=== PATIENT | female | born 1940 | race Hispanic/Latino ===

== ENCOUNTER → 2018-01-01 | Outpatient (CLI) | payer MEDICARE ==
--- NOTE | 2018-01-01 11:20 | Diagnostic Imaging Report ---
PROCEDURE:BONE DXA DUAL ENERGY INDICATION: Postmenopausal osteoporosis screening The patient history questionnaire was completed and is available on PACS. COMPARISON:12/07/2016 and 11/25/2013 FINDINGS: Evaluation of the left hip and lumbar spine was performed utilizing DEXA Hologic bone densitometer. The study is technically adequate. The patient's fracture risk is compared to an age-matched control. The patient denies prior surgery/fracture of the spine, hips or forearm. Left femoral neck bone mineral density: 0.583 g/cm2, T-score is -2.5, Z-score is -0.4. Left total hip bone mineral density: 0.742 g/cm2, T-score is -1.6, Z-score is 0.2. There has been a 2.5% decrease in measured bone mineral density of the left total hip since the baseline examination (11/25/2013). There has been a 1.3% increase in bone mineral density since the prior examination (12/07/2016). Lumbar spine total bone mineral density: 0.952 g/cm2, T-score is -0.9, Z-score is 1.5. There has been a 7.6% increase in measured bone mineral density in the lumbar spine since the baseline examination. There has been a 4.9% increase in bone mineral density since the prior examination. IMPRESSION: Bone mineralization by WHO Classification is osteoporotic. The fracture risk remains high. Correlate clinically for the necessity and timing of the next bone mineral density study. Dictated by: Zacarias Yee M.D. on 01/01/2018 at 11:26 Electronically approved by: Zacarias eYe M.D. on 01/01/2018 at 11:26
== END ==
LOC: MAMMO 09:24
PROVIDERS: ATTEND Family Medicine
DX: Z12.31 Encounter for screening mammogram for malignant neoplasm of breast (principal); M81.0 Age-related osteoporosis without current pathological fracture
CPT/HCPCS: 77067; 77080

== ENCOUNTER → 2018-12-31 | Outpatient (CLI) | payer MEDICARE ==
[~2018-12-31] MED LIST: ALENDRONATE SOD70 MG PO; AMLODIPINE BESY10 MG PO; CLONIDINE HCL0.1 MG PO; LISINOPRIL-HCT1 EAC1 PO; METOPROLOL SUC100 MG PO; PRAVASTATIN SOD40 MG PO
--- NOTE | 2018-12-31 10:07 | Diagnostic Imaging Report ---
EXAM: BONE MINERAL DENSITY HISTORY: Bone mineralization evaluation COMPARISON: Report from January 01, 2018 DISCUSSION: Evaluation of the left hip and lumbar spine was performed utilizing DEXA Hologic bone densitometer. The study is technically adequate. Left hip femoral neck bone mineral density: 0.61 g/cm2, T-score is -2.2, Z-score is -0.1. Left hip total bone mineral density: 0.76 g/cm2, T-score is -1.5, Z-score is 0.4. Bone mineralization increased by 3%. Lumbar spine total bone mineral density: 0.98 gm/cm2, T-score is -0.6, Z-score is 1.9. Bone mineralization increased by 2.9%. 10 year fracture risk for major osteoporotic fracture 13% and hip fracture 3.6%. Impression: Bone mineralization by WHO Classification is low bone mass/osteopenia, the fracture risk is increased. Signed by: Dr. Hank Dejesus M.D. on 12/31/2018 10:04 AM
--- NOTE | 2019-01-06 09:30 | Diagnostic Imaging Report ---
#[id number] - MGSCRBIL #BILATERAL DIGITAL SCREENING MAMMOGRAM WITH CAD: 12/31/2018 CLINICAL: Routine screening. Comparison is made to exams dated: 01/01/2018 mammogram and 12/07/2016 mammogram - [facility]. Current study contains 4 films. There are scattered fibroglandular elements in both breasts. Current study was also evaluated with a Computer Aided Detection (CAD) system. Benign appearing calcifications are noted bilaterally. No significant masses, calcifications, or other findings are seen in either breast. IMPRESSION: BENIGN There is no mammographic evidence of malignancy. A 1 year screening mammogram is recommended. The patient will be notified by letter of the results. DIXON MILES M.D. ct/penrad:01/02/2019 17:35:13 [employer] Operator: Sol TURNER(Ofelia)(Suraj), [facility] letter sent: Normal Exam Mammogram BI-RADS: 2 Benign
== END ==
LOC: DX 08:46
PROVIDERS: ATTEND Family Medicine
DX: Z12.31 Encounter for screening mammogram for malignant neoplasm of breast (principal); M81.0 Age-related osteoporosis without current pathological fracture
CPT/HCPCS: 77067; 77080

== ENCOUNTER 2019-01-05 19:28 | Emergency (ER) | payer MEDICARE ==
[~2019-01-05] VITALS: Ht 152.4 cm; Wt 59.0 kg
--- OUTSIDE RECORDS SUMMARY | 2019-01-05 19:31 | XMS REPORT ---
Author [facility] Address Unknown Phone Unavailable Care Team Providers Care Chemistry Quality Control Technician Name Role Phone Arnulfo KNAPP Unavailable Unavailable Problems This patient has no known problems. Allergies, Adverse Reactions, Alerts This patient has no known allergies or adverse reactions. Medications This patient has no known medications. Results Test Description Test Time Test Comments Text Results Atomic Results Result Comments BONE DXA DUAL ENERGY 2018-12-31 10:01:00 [place] [address] Patient Name: SAULO MAKI MR #: [id number] : 1940 Age/Sex: 78/F Req #: [id number] Adm Physician: Ordered by: GERARDO KNAPP MD Report #: [id number] Location: DX Room/Bed: Procedure: [id number] DX/BONE DXA DUAL ENERGY Exam Date: Exam Time: REPORT STATUS: Signed EXAM: BONE MINERAL DENSITY HISTORY: Bone mineralization evaluation COMPARISON: Report from January 01, 2018 DISCUSSION: Evaluation of the left hip and lumbar spine was performed utilizing DEXA Hologic bone densitometer. The study is technically adequate. Left hip femoral neck bone mineral density: 0.61 g/cm2, T-score is -2.2, Z-score is -0.1. Left hip total bone mineral density: 0.76 g/cm2, T-score is -1.5, Z-score is 0.4. Bone mineralization increased by 3%. Lumbar spine total bone mineral density: 0.98 gm/cm2, T-score is -0.6, Z-score is 1.9. Bone mineralization increased by 2.9%. 10 year fracture risk for major osteoporotic fracture 13% and hip fracture 3.6%. Impression: Bone mineralization by WHO Classification is low bone mass/osteopenia, the fracture risk is increased. Signed by: Dr. Rosa Carbajal M.D. on 12/31/2018 10:04 AM Dictated By: ROSA CARBAJAL MD 1004 Transcribed By: KAILEY on 12/31/18 1004 COPY TO: GERARDO KNAPP MD BONE DXA DUAL ENERGY 2018-01-01 11:26:00 [place] [address] Patient Name: SAULO MAKI MR #: [id number] : 1940 Age/Sex: 77/F Req #: [id number] Adm Physician: Ordered by: GERARDO KNAPP MD Report #: [id number] Location: [facility] Room/Bed: Procedure: [id number] DX/BONE DXA DUAL ENERGY Exam Date: Exam Time: REPORT STATUS: Signed PROCEDURE: BONE DXA DUAL ENERGY INDICATION: Postmenopausal osteoporosis screening The patient history questionnaire was completed and is available on PACS. COMPARISON: 12/07/2016 and 11/25/2013 FINDINGS: Evaluation of the left hip and lumbar spine was performed utilizing DEXA Hologic bone densitometer. The study is technically adequate. The patient's fracture risk is compared to an age-matched control. The patient denies prior surgery/fracture of the spine, hips or forearm. Left femoral neck bone mineral density: 0.583 g/cm2, T-score is -2.5, Z-score is -0.4. Left total hip bone mineral density: 0.742 g/cm2, T-score is -1.6, Z-score is 0.2. There has been a 2.5% decrease in measured bone mineral density of the left total hip since the baseline examination (11/25/2013). There has been a 1.3% increase in bone mineral density since the prior examination (12/07/2016). Lumbar spine total bone mineral density: 0.952 g/cm2, T-score is -0.9, Z- score is 1.5. There has been a 7.6% increase in measured bone mineral density in the lumbar spine since the baseline examination. There has been a 4.9% increase in bone mineral density since the prior examination. IMPRESSION: Bone mineralization by WHO Classification is osteoporotic. The fracture risk remains high. Correlate clinically for the necessity and timing of the next bone mineral density study. Dictated by: Butch Yee M.D. on 01/01/2018 at 11:26 Electronically approved by: Butch Yee M.D. on 01/01/2018 at 11:26 Dictated By: BUTCH YEE MD 1126 Transcribed By: GHAZAL on 01/01/18 1126 COPY TO: GERARDO KNAPP MD MAMMOGRAPHY DIGITAL SCR BIL 2018-01-01 10:26:00 [place] [address] Patient Name: SAULO MAKI MR #: [id number] : 1940 Age/Sex: 77/F Req #: [id number] Adm Physician: Ordered by: GERARDO KNAPP MD Report #: [id number] Location: [facility] Room/Bed: Procedure: [id number] MG/MAMMOGRAPHY DIGITAL SCR BILAT Exam Date: 01/01/18 Exam Time: 0946 REPORT STATUS: Signed #[id number] - MGSCRBIL #BILATERAL DIGITAL SCREENING MAMMOGRAM WITH CAD: 01/01/2018 CLINICAL: Routine screening. Comparison is made to exams dated: 12/07/2016 mammogram and 10/27/2015 mammogram - [facility]. There are scattered fibroglandular elements in both breasts. Current study was also evaluated with a Computer Aided Detection (CAD) system. No new significant masses, calcifications, or other findings are seen in either breast. IMPRESSION: BENIGN There is no mammographic evidence of malignancy. A 1 year screening mammogram is recommended. The patient will be notified by letter of the results. David Linares M.D. ks/:01/07/2018 10:10:54 Lighter: Sol TURNER(R)(M), [facility] letter sent: Normal Exam Mammogram BI-RADS: 2 Benign Dictated By: DAVID LINARES MD 1010 Transcribed By: LV on 01/07/18 1010 COPY TO: GERARDO KNAPP MD
[2019-01-05 19:55] LABS: BILIRUBIN,URINE NEGATIVE (NEGATIVE); CLARITY,URINE CLEAR (CLEAR); KETONES,URINE NEGATIVE (NEGATIVE); LEUKOCYTE ESTERASE ,URINE NEGATIVE (NEGATIVE); NITRITE,URINE NEGATIVE (NEGATIVE); PROTEIN,URINE DIPSTICK NEGATIVE (NEGATIVE); URINE UROBILINOGEN 0.2 mg/dL (0.2 - 1)
[2019-01-05 19:55] LABS: BASOPHILS # (AUTO) 0.1 (0.0-0.1); BASOPHILS % 0.7 % (0.0-1.0); EOSINOPHILS # (AUTO) 0.2 (0.0-0.4); EOSINOPHILS % 1.7 % (0.0-6.0); HEMATOCRIT 42.7 % (34.2-44.1); LYMPHOCYTES # (AUTO) 3.5 (1.0-3.2); MEAN CORPUSCULAR HEMOGLOBIN 30.6 pg (28-32); MEAN CORPUSCULAR HGB CONC 35.1 g/dL (31-35); MEAN CORPUSCULAR VOLUME 87.1 fL (81-99); MONOCYTES % 9.8 % (4.4-11.3); NEUTROPHILS # (AUTO) 5.3 (2.1-6.9); NEUTROPHILS % 51.9 % (38.7-80.0); PLATELET COUNT 280 x10e3/uL (140-360); RED CELL DISTRIBUTION WIDTH 12.5 % (11.7-14.4)
[2019-01-05 19:56] LABS: COLOR,URINE COLORLESS (YELLOW)
[2019-01-05] MEDS ORDERED: DIATRIZOATE MEGL/DIATRIZOA SOD 30 ML BTL PO ONE (20:00)
[2019-01-05] MEDS ORDERED: METOPROLOL SUC100 MG PO (20:00)
[2019-01-05] MEDS ORDERED: LISINOPRIL-HCT1 EAC1 PO (20:00)
[2019-01-05] MEDS ORDERED: CLONIDINE HCL0.1 MG PO (20:00)
[2019-01-05] MEDS ORDERED: PRAVASTATIN SOD40 MG PO (20:00)
[2019-01-05] MEDS ORDERED: ALENDRONATE SOD70 MG PO (20:00)
[2019-01-05] MEDS ORDERED: AMLODIPINE BESY10 MG PO (20:00)
[2019-01-05 20:09] LABS: EPITHELIAL CELLS,URINE RARE /LPF
[2019-01-05 20:12] LABS: ALBUMIN 4.5 g/dL (3.5-5.0); ALBUMIN/GLOBULIN RATIO 1.1 (0.8-2.0); ANION GAP 18.1 mmol/L (8-16); CREATININE, SERUM 1.11 mg/dL (0.57-1.11); POTASSIUM 4.1 mmol/L (3.5-5.1)
[2019-01-05 20:13] LABS: AMYLASE 79 U/L (25-125); LIPASE 23 U/L (8-78)
[2019-01-05] MEDS ORDERED: SODIUM CHLORIDE 0.9% 1000ML 1,000 ML IV ONE (21:00)
--- NOTE | 2019-01-05 22:29 | Diagnostic Imaging Report ---
CT Abdomen And Pelvis with Intravenous Contrast INDICATION: ^BILATERAL LOWER QUADRANT PAIN ^Y TECHNIQUE: Thin collimation axial images obtained from the diaphragm to the level of the pubic symphysis following the uneventful administration of 100 cc of low osmolar, nonionic intravenous contrast. Enteric contrast was administered. Dose reduction techniques used: Automated exposure control, adjustment of the mAs and/or kVp according to patient size, standardized low-dose protocol, and/or iterative reconstruction technique. RADIATION DOSE: Total DLP: 276.28 mGy*cm Estimated effective dose: (DLP x 0.015 x size factor) mSv CTDIvol has been reviewed. It is below the limits set by the Radiation Protocol Committee (RPC). COMPARISON: None. ABDOMEN FINDINGS: Lung Bases: Clear. The visualized portions of the mediastinum are normal. Liver: Mild steatosis. No evidence for mass. Gallbladder: Present and appears normal. No biliary ductal dilatation. Pancreas: Mild fatty atrophy. No mass or ductal dilatation. Spleen: Normal in size. No evidence of mass.. Adrenal Glands: No evidence for mass. Kidneys: Right: Normal enhancement. No soft tissue mass. No hydronephrosis. Left: Normal enhancement. Subcentimeter upper pole cyst. No hydronephrosis. Retroaortic left renal vein. Lymph Nodes: No enlarged abdominal or retroperitoneal lymph nodes.. Aorta: Normal in diameter with scattered calcifications PELVIS FINDINGS: Bowel: Stomach: Normal. Small Bowel: Normal in caliber with normal wall thickness. Large Bowel: Normal in caliber with normal wall thickness. Appendix: Normal appendix. Bladder: Normal. The uterus is absent. No adnexal mass. Peritoneum/retroperitoneum: No free fluid or fluid collection. Bones: Sclerotic lobulated lesion in the left iliac wing measures 15 mm and is likely a bone island. There are mild degenerative changes of the spine. Soft tissues: Unremarkable. IMPRESSION: 1. No evidence for bowel obstruction or inflammation. Normal appendix. 2. Mild steatosis. Signed by: Dr. Raji Vargas MD on 01/05/2019 10:25 PM
[2019-01-05] MEDS ORDERED: IOPAMIDOL 370 MG/ML 200 ML INFUS..BTL INJ ONE (22:45)
[2019-01-05] MEDS ORDERED: SODIUM CHLORIDE 0.9% 50ML 50 ML ONE (22:45)
[2019-01-05 22:53] VITALS: BP 146/68
== END 2019-01-05 23:02 | disposition home or self-care (01) ==
LOC: FSED 19:28 → ER 23:02
DX: R10.31 Right lower quadrant pain (principal); R10.32 Left lower quadrant pain; E87.1 Hypo-osmolality and hyponatremia; I10 Essential (primary) hypertension; E78.00 Pure hypercholesterolemia, unspecified
CPT/HCPCS: 36415; 74177; 80053; 81001; 82150; 83690; 85025; 99284; J7030; Q9967

== ENCOUNTER → 2019-01-14 | Outpatient (CLI) | payer MEDICARE ==
--- NOTE | 2019-01-14 12:01 | Diagnostic Imaging Report ---
EXAM: US ABDOMEN COMPLETE DATE: 01/14/2019 10:02 AM INDICATION: Abdominal pain, belching COMPARISON: Abdomen and pelvis CT of 01/05/2019 TECHNIQUE: Transverse and longitudinal guadalupe scale and color doppler sonographic images of the upper abdomen were obtained. FINDINGS: There is no evidence of fluid or masses seen in the area of clinical concern in the right lower quadrant. LIVER 12.8 cm in the right midclavicular line. Increased echogenicity of the liver with normal contour, no masses. SPLEEN 8.2 cm in maximum diameter. Normal echogenicity, no masses. GALLBLADDER No gallbladder wall thickening, distension, stone, or pericholecystic fluid. NEgative reported sonographic Kelly's sign. Gallbladder wall measures 2 mm BILE DUCTS No intra nor extra-hepatic biliary dilation. Common bile duct measures 3 mm PANCREAS: Visualized portions are normal. RIGHT KIDNEY: 8.5 cm Echogenicity: Normal Collecting System: No hydronephrosis Stones: None Cyst/Mass: None LEFT KIDNEY: 8.9 cm Echogenicity: Normal Collecting System: No hydronephrosis Stones: None Cyst/Mass: None VESSELS: Aorta: Visualized portions are within normal size limits Inferior Vena Cava: Visualized portions are normal Main Portal Vein: 0.7 cm, normal size with hepatopetal flow. FREE FLUID: None IMPRESSION: Hepatic steatosis. No cholelithiasis or sonographic evidence of cholecystitis. Unremarkable kidneys. Signed by: Saulo Cat MD on 01/14/2019 11:57 AM
--- NOTE | 2019-01-14 19:38 | Diagnostic Imaging Report ---
Hepatobiliary Scan with Gallbladder Ejection Fraction Clinical information: RUQ abdominal pain Report: Following intravenous administration of 6.6 millicuries of Tc-99m mebrofenin, dynamic images of the abdomen in the anterior projection were obtained through 60 minutes. Sincalide (CCK analog) 1.3 micrograms was administered intravenously over 30 minutes with additional imaging for determination of gallbladder ejection fraction. Perfusion to the liver is normal. Extraction of tracer from the blood pool by the liver parenchyma is normal. Tracer is seen promptly within the biliary tract. The gallbladder begins to fill by 28 minutes post-injection of tracer and fills adequately. Tracer is seen in the small bowel during the sincalide infusion. The gallbladder ejection fraction with administration of sincalide is 83% (normal greater than 40%). Impression: 1. Filling of the gallbladder excludes the diagnosis of acute cystic duct obstruction/acute cholecystitis. 2. Normal gallbladder ejection fraction of 83% does not support the clinical diagnosis of chronic cholecystitis/gallbladder dyskinesia. Signed by: Dr. Sol Anthony M.D. on 01/14/2019 7:35 PM
== END ==
LOC: US 09:44
PROVIDERS: ATTEND Internal Medicine Gastroenterology
DX: R14.2 Eructation (principal)
CPT/HCPCS: 76700; 78227; A9537

== ENCOUNTER 2019-01-21 06:21 | Emergency (ER) | payer MEDICARE ==
[~2019-01-21] VITALS: Ht 152.4 cm; Wt 59.0 kg
[2019-01-21] MEDS ORDERED: LORAZEPAM 1 MG TAB PO ONE (06:45)
[2019-01-21] MEDS ORDERED: CLONIDINE HCL 0.1 MG TAB PO ONE (06:45)
[2019-01-21 06:51] LABS: BILIRUBIN,URINE NEGATIVE (NEGATIVE); CLARITY,URINE CLEAR (CLEAR); COLOR,URINE YELLOW (YELLOW); KETONES,URINE NEGATIVE (NEGATIVE); LEUKOCYTE ESTERASE ,URINE NEGATIVE (NEGATIVE); NITRITE,URINE NEGATIVE (NEGATIVE); PROTEIN,URINE DIPSTICK NEGATIVE (NEGATIVE); URINE UROBILINOGEN 0.2 mg/dL (0.2 - 1)
[2019-01-21] MEDS ORDERED: MORPHINE SULFATE 2 MG/ML SYR 1ML IV STA (07:01)
[2019-01-21] MEDS ORDERED: SODIUM CHLORIDE 0.9% 1000ML 1,000 ML IV STA (07:01)
[2019-01-21] MEDS ORDERED: PANTOPRAZOLE 40 MG 10ML VIAL IV STA (07:01)
[2019-01-21] MEDS ORDERED: ONDANSETRON HCL INJ 2MG/ML 2ML 2 MG/ML VIAL IV STA (07:01)
[2019-01-21 07:05] LABS: BACTERIA,URINE RARE /HPF; EPITHELIAL CELLS,URINE FEW /LPF; RBC,URINE 0-5 /HPF (0-5); WBC,URINE (MAN) 0-5 /HPF (0-5)
[2019-01-21 07:18] LABS: BASOPHILS # (AUTO) 0.1 (0.0-0.1); BASOPHILS % 0.5 % (0.0-1.0); EOSINOPHILS % 0.2 % (0.0-6.0); HEMATOCRIT 40.8 % (34.2-44.1); HEMOGLOBIN 14.6 g/dL (12.0-16.0); LYMPHOCYTES # (AUTO) 1.5 (1.0-3.2); LYMPHOCYTES % 15.7 % (18.0-39.1); MEAN CORPUSCULAR HEMOGLOBIN 30.4 pg (28-32); MEAN CORPUSCULAR HGB CONC 35.8 g/dL (31-35); MEAN CORPUSCULAR VOLUME 84.8 fL (81-99); MONOCYTES # (AUTO) 0.8 (0.2-0.8); MONOCYTES % 8.5 % (4.4-11.3); NEUTROPHILS # (AUTO) 7.2 (2.1-6.9); PLATELET COUNT 302 x10e3/uL (140-360); RED BLOOD COUNT 4.81 x10e6/uL (3.6-5.1)
[2019-01-21 07:27] LABS: INR 0.89; PROTHROMBIN TIME 12.5 seconds (11.9-14.5)
[2019-01-21 07:28] LABS: PARTIAL THROMBOPLASTIN TIME 25.4 seconds (23.8-35.5)
[2019-01-21 07:37] LABS: ALANINE AMINOTRANSFERASE 23 IU/L (0-55); ALBUMIN/GLOBULIN RATIO 1.1 (0.8-2.0); ALKALINE PHOSPHATASE 53 IU/L (40-150); ANION GAP 15.8 mmol/L (8-16); BLOOD UREA NITROGEN 18 mg/dL (7-26); BUN/CREATININE RATIO 20 (6-25); CALCIUM 9.6 mg/dL (8.4-10.2); CARBON DIOXIDE 21 mmol/L (22-29); CHLORIDE 91 mmol/L (98-107); CREATINE KINASE 39 IU/L (29-168); EST GLOMERULAR FILTRATION RATE > 60 ML/MIN (60-); GLUCOSE 122 mg/dL (74-118); LIPASE 30 U/L (8-78); MAGNESIUM 1.9 MG/DL (1.3-2.1); POTASSIUM 3.8 mmol/L (3.5-5.1); SODIUM 124 mmol/L (136-145)
[2019-01-21 08:18] VITALS: BP 134/59
--- NOTE | 2019-01-21 08:26 | Diagnostic Imaging Report ---
EXAM: CHEST SINGLE (PORTABLE) DATE: 01/21/2019 7:01 AM INDICATION: Abdominal pain COMPARISON: None FINDINGS: The trachea is midline. There are mildly increased bibasilar opacity suggestive of atelectasis. There is no evidence for focal consolidation, pneumothorax, or significant pleural effusion. The cardiomediastinal silhouette and pulmonary vascular within normal limits. No acute osseous abnormalities identified. IMPRESSION: No acute cardiopulmonary process identified. Signed by: Dr. Sanket Villareal MD on 01/21/2019 8:22 AM
== END 2019-01-21 08:40 | disposition home or self-care (01) ==
LOC: ER 06:21
DX: R10.13 Epigastric pain (principal); K29.50 Unspecified chronic gastritis without bleeding; I10 Essential (primary) hypertension; K21.9 Gastro-esophageal reflux disease without esophagitis; E78.5 Hyperlipidemia, unspecified; E87.1 Hypo-osmolality and hyponatremia
CPT/HCPCS: 36415; 71045; 80053; 81001; 82550; 82553; 83690; 83735; 83880; 84484; 85025; 85610; 85730; 87086; 93005; 99284; C9113; J2270; J2405; J7030

== ENCOUNTER → 2020-10-13 | Outpatient (CLI) | payer MEDICARE | LOC: US 08:12 | PROVIDERS: ATTEND Internal Medicine Nephrology | DX: N18.31 Chronic kidney disease, stage 3a (principal); I12.9 Hypertensive chronic kidney disease with stage 1 through stage 4 chronic kidney disease, or unspecified chronic kidney disease | CPT/HCPCS: 76770 ==

== ENCOUNTER → 2020-11-01 | Outpatient (CLI) | payer MEDICARE | LOC: MAMMO 13:59 | PROVIDERS: ATTEND Family Medicine | DX: Z12.31 Encounter for screening mammogram for malignant neoplasm of breast (principal); M81.0 Age-related osteoporosis without current pathological fracture | CPT/HCPCS: 77067; 77080 ==

== ENCOUNTER 2021-04-17 20:35 | Emergency (ER) | payer MEDICARE ==
[~2021-04-17] VITALS: Ht 162.6 cm; Wt 59.0 kg
[2021-04-17 22:18] LABS: CLARITY,URINE CLEAR (CLEAR); COLOR,URINE YELLOW (YELLOW); KETONES,URINE NEGATIVE (NEGATIVE); LEUKOCYTE ESTERASE ,URINE NEGATIVE (NEGATIVE); NITRITE,URINE NEGATIVE (NEGATIVE); PROTEIN,URINE DIPSTICK NEGATIVE (NEGATIVE); URINE UROBILINOGEN 0.2 mg/dL (0.2 - 1)
[2021-04-17 22:26] LABS: BACTERIA,URINE MODERATE /HPF; EPITHELIAL CELLS,URINE MODERATE /LPF; RBC,URINE 0-5 /HPF (0-5)
[2021-04-17] MEDS ORDERED: CIPRO500 MG PO (23:03)
[2021-04-17] MEDS ORDERED: METRONIDAZOLE500 MG PO (23:03)
[2021-04-17] MEDS ORDERED: ONDANSETRON ODT4 MG PO (23:03)
[2021-04-22] MEDS ORDERED: PRINIVIL20 MG PO (13:42)
== END 2021-04-17 23:08 | disposition home or self-care (01) ==
LOC: ER 20:45
DX: K52.9 Noninfective gastroenteritis and colitis, unspecified (principal); N39.0 Urinary tract infection, site not specified; I10 Essential (primary) hypertension; E78.5 Hyperlipidemia, unspecified; K21.9 Gastro-esophageal reflux disease without esophagitis
CPT/HCPCS: 74176; 81001; 99283

== ENCOUNTER 2021-04-20 08:17 | Inpatient (IN) | payer MEDICARE ==
[~2021-04-20] VITALS: Ht 162.6 cm; Wt 59.0 kg
[2021-04-20] VITALS (7 sets, daily range): BP systolic 130–153; BP diastolic 49–73
[~2021-04-20 08:17] MED LIST changes: +CIPRO500 MG PO; +METRONIDAZOLE500 MG PO; +ONDANSETRON ODT4 MG PO
[2021-04-20] MEDS ORDERED: SODIUM CHLORIDE 0.9% 1000ML 1,000 ML IV SCH ×2 (08:45→16:30)
[2021-04-20 09:23] LABS: BASOPHILS # (AUTO) 0.1 (0.0-0.1); BASOPHILS % 0.6 % (0.0-1.0); EOSINOPHILS % 0.3 % (0.0-6.0); HEMATOCRIT 40.8 % (34.2-44.1); HEMOGLOBIN 14.4 g/dL (12.0-16.0); LYMPHOCYTES # (AUTO) 1.8 (1.0-3.2); LYMPHOCYTES % 16.9 % (18.0-39.1); MEAN CORPUSCULAR HGB CONC 35.3 g/dL (31-35); MONOCYTES # (AUTO) 0.8 (0.2-0.8); MONOCYTES % 7.2 % (4.4-11.3); NEUTROPHILS % 73.9 % (38.7-80.0); PLATELET COUNT 300 x10e3/uL (140-360); RED CELL DISTRIBUTION WIDTH 12.2 % (11.7-14.4)
[2021-04-20 09:52] LABS: ALBUMIN 3.8 g/dL (3.5-5.0); ALBUMIN/GLOBULIN RATIO 0.9 (0.8-2.0); ANION GAP 18.3 mmol/L (8-16); CALCIUM 9.4 mg/dL (8.4-10.2); CREATININE, SERUM 0.99 mg/dL (0.57-1.11); POTASSIUM 4.3 mmol/L (3.5-5.1)
[2021-04-20] MEDS ORDERED: LORAZEPAM 0.5 MG TAB PO ONE (10:30)
[2021-04-20 11:07] LABS: ANION GAP 13.7 mmol/L (8-16); CALCIUM 8.2 mg/dL (8.4-10.2); CREATININE, SERUM 0.81 mg/dL (0.57-1.11); POTASSIUM 3.7 mmol/L (3.5-5.1)
[2021-04-20] MEDS ORDERED: ATORVASTATIN CA40 MG PO (13:11)
[2021-04-20] MEDS ORDERED: ONDANSETRON HCL INJ 2MG/ML 2ML 2 MG/ML VIAL IV PRN (15:00)
[2021-04-20] MEDS ORDERED: ACETAMINOPHEN 325 MG TAB PO PRN (15:00)
[2021-04-20] MEDS ORDERED: DOCUSATE SODIUM 100 MG CAP PO PRN (15:00)
[2021-04-20] MEDS ORDERED: SIMETHICONE 80 MG CHEW PO PRN (15:00)
[2021-04-20] MEDS ORDERED: DIPHENHYDRAMINE HCL 25 MG CAP PO PRN (15:00)
[2021-04-20] MEDS ORDERED: POTASSIUM CHLORIDE 20 MEQ TAB CR PO PRN (15:00)
[2021-04-20] MEDS ORDERED: MELATONIN 5 MG TABLET PO PRN (15:00)
[2021-04-20] MEDS ORDERED: DEXTROSE 50% SYRINGE 50 ML IV PRN (15:00)
[2021-04-20] MEDS ORDERED: BENZONATATE 100 MG CAP PO PRN (15:00)
[2021-04-20] MEDS ORDERED: LIDOCAINE 4% PATCH TP PRN (15:00)
[2021-04-20] MEDS ORDERED: HYDRALAZINE HCL 20 MG/ML VIAL IV PRN (15:00)
[2021-04-20] MEDS ORDERED: ALBUTEROL/IPRATROPIUM 3 ML NEB NEB PRN (15:00)
[2021-04-20] MEDS ORDERED: TRAMADOL HCL 50 MG TAB PO PRN (15:00)
[2021-04-20] MEDS: PIPERACILLIN/TAZOBACTAM 3.375 GM in SODIUM CHLORIDE 0.9% 50ML 50 ML IV SCH (17:37)
[2021-04-20] MEDS: ENOXAPARIN SOD INJ 40 MG/0.4 ML SYR SC SCH (17:37)
[2021-04-20] MEDS ORDERED: PIPERACILLIN/TAZOBACTAM 2.25 GM in SODIUM CHLORIDE 0.9% 50ML 50 ML IV SCH (22:00)
[2021-04-20] MEDS: ATORVASTATIN 40 MG TAB PO SCH (22:32)
[2021-04-21] VITALS (8 sets, daily range): BP systolic 133–164; BP diastolic 52–69
[2021-04-21] MEDS: PIPERACILLIN/TAZOBACTAM 3.375 GM in SODIUM CHLORIDE 0.9% 50ML 50 ML IV SCH ×2 (03:12→09:00)
[2021-04-21 05:02] LABS: BASOPHILS # (AUTO) 0.1 (0.0-0.1); BASOPHILS % 0.7 % (0.0-1.0); EOSINOPHILS # (AUTO) 0.1 (0.0-0.4); EOSINOPHILS % 1.7 % (0.0-6.0); HEMATOCRIT 35.9 % (34.2-44.1); HEMOGLOBIN 12.4 g/dL (12.0-16.0); LYMPHOCYTES # (AUTO) 2.7 (1.0-3.2); LYMPHOCYTES % 32.9 % (18.0-39.1); MEAN CORPUSCULAR HEMOGLOBIN 30.4 pg (28-32); MEAN CORPUSCULAR HGB CONC 34.5 g/dL (31-35); MONOCYTES # (AUTO) 1.1 (0.2-0.8); MONOCYTES % 13.2 % (4.4-11.3); NEUTROPHILS # (AUTO) 4.2 (2.1-6.9); NEUTROPHILS % 50.8 % (38.7-80.0); PLATELET COUNT 256 x10e3/uL (140-360); RED BLOOD COUNT 4.08 x10e6/uL (3.6-5.1); RED CELL DISTRIBUTION WIDTH 12.7 % (11.7-14.4)
[2021-04-21 05:41] LABS: ANION GAP 14.7 mmol/L (8-16); CALCIUM 8.6 mg/dL (8.4-10.2); CREATININE, SERUM 0.98 mg/dL (0.57-1.11); MAGNESIUM 2.1 MG/DL (1.3-2.1); POTASSIUM 3.7 mmol/L (3.5-5.1); THYROID STIMULATING HORMONE 1.086 uIU/mL (0.350-4.940)
[2021-04-21] MEDS: PANTOPRAZOLE SOD 40 MG TABEC PO SCH (08:57)
[2021-04-21] MEDS: AMLODIPINE BESYLATE 10 MG TAB PO SCH (08:59)
[2021-04-21] MEDS ORDERED: DESMOPRESSIN ACETATE 4 MCG/ML VIAL SQ ONE (13:45)
[2021-04-21] MEDS: DEXTROSE 5% 1,000 ML IV SCH ×2 (13:46→21:00)
[2021-04-21] MEDS: METRONIDAZOLE 500 MG TAB PO SCH ×2 (13:46→21:00)
[2021-04-21] MEDS: ENOXAPARIN SOD INJ 40 MG/0.4 ML SYR SC SCH (16:15)
[2021-04-21 20:23] LABS: OSMOLALITY,SERUM OSMOMETER 259 mOsmol/kg (280-301)
[2021-04-21] MEDS: ATORVASTATIN 40 MG TAB PO SCH (20:59)
[2021-04-21] MEDS: CEFEPIME 1 GM in SODIUM CHLORIDE 0.9% 50ML 50 ML IV SCH (20:59)
[2021-04-22 00:18] VITALS: BP 162/66
[2021-04-22 04:18] VITALS: BP 158/61
[2021-04-22] MEDS: METRONIDAZOLE 500 MG TAB PO SCH ×2 (05:20→14:00)
[2021-04-22] MEDS: PANTOPRAZOLE SOD 40 MG TABEC PO SCH (07:30)
[2021-04-22 07:35] VITALS: BP 165/68
[2021-04-22 07:47] LABS: ANION GAP 14.5 mmol/L (8-16); CALCIUM 8.5 mg/dL (8.4-10.2); CREATININE, SERUM 0.79 mg/dL (0.57-1.11); POTASSIUM 3.5 mmol/L (3.5-5.1)
[2021-04-22 08:28] VITALS: BP 165/68
[2021-04-22] MEDS: CEFEPIME 1 GM in SODIUM CHLORIDE 0.9% 50ML 50 ML IV SCH (09:00)
[2021-04-22] MEDS: AMLODIPINE BESYLATE 10 MG TAB PO SCH (09:00)
[2021-04-22 11:30] VITALS: BP 153/63
[2021-04-22] MEDS ORDERED: PRINIVIL20 MG PO (13:42)
== END 2021-04-22 15:47 | disposition home or self-care (01) | DRG 392 ==
LOC: ER 08:20 → ERHOLD 10:30 → IMCU 11:16 → MED/SURG2 04-21 18:07
PROVIDERS: ADMIT Internal Medicine; ATTEND Internal Medicine
DX: K52.89 Other specified noninfective gastroenteritis and colitis (principal); E87.1 Hypo-osmolality and hyponatremia; I10 Essential (primary) hypertension; E78.5 Hyperlipidemia, unspecified; E86.0 Dehydration; T50.2X5A Adverse effect of carbonic-anhydrase inhibitors, benzothiadiazides and other diuretics, initial encounter; Z20.822 Contact with and (suspected) exposure to COVID-19
CPT/HCPCS: 36415; 80048; 80053; 83036; 83735; 83930; 83935; 84295; 84300; 84443; 84550; 85025; 94799; 99284; J0692; J1650; J2543; J7030; J7070; U0002

== ENCOUNTER → 2021-07-13 | Day surgery (SDC) | payer MEDICARE ==
[2021-07-11 08:18] LABS: BASOPHILS # (AUTO) 0.1 (0.0-0.1); BASOPHILS % 0.9 % (0.0-1.0); EOSINOPHILS # (AUTO) 0.1 (0.0-0.4); EOSINOPHILS % 1.4 % (0.0-6.0); HEMATOCRIT 45.4 % (34.2-44.1); HEMOGLOBIN 15.3 g/dL (12.0-16.0); LYMPHOCYTES # (AUTO) 2.6 (1.0-3.2); LYMPHOCYTES % 32.3 % (18.0-39.1); MEAN CORPUSCULAR HEMOGLOBIN 30.1 pg (28-32); MEAN CORPUSCULAR HGB CONC 33.7 g/dL (31-35); MEAN CORPUSCULAR VOLUME 89.4 fL (81-99); MONOCYTES # (AUTO) 0.8 (0.2-0.8); MONOCYTES % 10.3 % (4.4-11.3); NEUTROPHILS # (AUTO) 4.3 (2.1-6.9); NEUTROPHILS % 54.6 % (38.7-80.0); PLATELET COUNT 277 x10e3/uL (140-360); RED BLOOD COUNT 5.08 x10e6/uL (3.6-5.1); RED CELL DISTRIBUTION WIDTH 12.9 % (11.7-14.4)
[~2021-07-13] MED LIST changes: +ATORVASTATIN CA40 MG PO; +FENTANYL CITRATE/PF 100MCG/2 ML INJ ONE; +HYOSCYAMINE SULFATE 0.5 MG/ML INJ ONE; +LIDOCAINE HCL 2% LOCAL INJ 5 ML SDV VIAL INJ ONE; +PRINIVIL20 MG PO; +PROPOFOL IV EMULSION 10 MG/ML 20 ML VIAL ONE
[2021-07-13 09:30] VITALS: BP 125/65
== END | disposition home or self-care (01) ==
LOC: OR 06:39
PROVIDERS: ATTEND Internal Medicine Gastroenterology
DX: K52.9 Noninfective gastroenteritis and colitis, unspecified (principal); D12.0 Benign neoplasm of cecum; D12.4 Benign neoplasm of descending colon; K64.8 Other hemorrhoids; I10 Essential (primary) hypertension; E78.5 Hyperlipidemia, unspecified; Z01.810 Encounter for preprocedural cardiovascular examination; Z01.812 Encounter for preprocedural laboratory examination; Z20.822 Contact with and (suspected) exposure to COVID-19; Z79.899 Other long term (current) drug therapy
CPT/HCPCS: 36415; 45380; 45385; 85025; 93005; J1980; J2001; J2704; J3010; U0002; 45378

== ENCOUNTER → 2021-11-15 | Outpatient (CLI) | payer MEDICARE ==
[~2021-11-15] MED LIST changes: -FENTANYL CITRATE/PF 100MCG/2 ML INJ ONE; -HYOSCYAMINE SULFATE 0.5 MG/ML INJ ONE; -LIDOCAINE HCL 2% LOCAL INJ 5 ML SDV VIAL INJ ONE; -PROPOFOL IV EMULSION 10 MG/ML 20 ML VIAL ONE
== END ==
LOC: MAMMO 09:29
PROVIDERS: ATTEND Family Medicine
DX: Z12.31 Encounter for screening mammogram for malignant neoplasm of breast (principal); M85.88 Other specified disorders of bone density and structure, other site
CPT/HCPCS: 77067; 77080

== ENCOUNTER → 2022-09-17 | Outpatient (CLI) | payer MEDICARE ==
[~2022-09-17] MED LIST changes: +DIATRIZOATE MEGL/DIATRIZOA SOD 30 ML BTL PO ONE; +IOPAMIDOL 370 MG/ML 100 ML INFUS..BTL INJ ONE
[2022-09-17 17:24] LABS: CREATININE, SERUM 1.07 mg/dL (0.57-1.11)
== END ==
LOC: CT 16:22
PROVIDERS: ATTEND Family Medicine
DX: R10.9 Unspecified abdominal pain (principal)
CPT/HCPCS: 36415; 74160; 82565; 84520; Q9963; Q9967

== ENCOUNTER → 2023-12-20 | Outpatient (REF) | payer MEDICARE ==
[~2023-12-20] MED LIST changes: -DIATRIZOATE MEGL/DIATRIZOA SOD 30 ML BTL PO ONE; -IOPAMIDOL 370 MG/ML 100 ML INFUS..BTL INJ ONE
== END ==
LOC: MAMMO 12:55
PROVIDERS: ATTEND Family Medicine
DX: Z12.31 Encounter for screening mammogram for malignant neoplasm of breast (principal); M81.0 Age-related osteoporosis without current pathological fracture
CPT/HCPCS: 77067; 77080

== ENCOUNTER → 2024-02-07 | Outpatient (REF) | payer MEDICARE | LOC: US 10:19 | PROVIDERS: ATTEND Internal Medicine Nephrology | DX: N18.31 Chronic kidney disease, stage 3a (principal) | CPT/HCPCS: 76770; 76857 ==